=== PATIENT | female | born 1985 | race African-American/Black ===

== ENCOUNTER 2017-07-11 17:42 | Emergency (ER) | payer MEDICAID ==
[~2017-07-11] VITALS: Ht 167.6 cm; Wt 74.8 kg
[2017-07-11] MEDS ORDERED: MAGN400C PO (17:50)
[2017-07-11] MEDS ORDERED: FISH OIL PO (17:50)
[2017-07-11 18:29] LABS: CREATININE 0.8 mg/dL (0.6-1.3); POTASSIUM 4.3 mmol/L (3.5-5.1)
[2017-07-11 18:35] LABS: BILIRUBIN,TOTAL 0.2 mg/dL (0.2-1.0); TOTAL PROTEIN, SERUM 7.9 g/dL (6.4-8.2)
[2017-07-11 18:37] LABS: HEMATOCRIT 24.7 % (37-47); MEAN CORPUSCULAR HEMOGLOBIN 17.5 UUG (27.0-31.0); MEAN CORPUSCULAR HGB CONC 30 g/dL (32.0-37.0); MEAN CORPUSCULAR VOLUME 59.3 FL (81.0-99.0); PLATELET COUNT (AUTO) 405 K/UL (150-450); RED BLOOD CELL COUNT(AUTO) 4.18 MIL/UL (4.2-5.4); WHITE BLOOD COUNT (AUTO) 6.9 K/UL (4.0-11.2)
[2017-07-11 18:45] LABS: HEMOGLOBIN 7.3 G/DL (12.0-16.0)
[2017-07-11] MEDS ORDERED: IV NS 1000 ML 1,000 ML IV ONE (18:45)
[2017-07-11 19:04] LABS: EOSINOPHILS % (MANUAL) 1 % (0-8); LYMPHOCYTES % (MANUAL) 46 % (20-40); MONOCYTES % (MANUAL) 10 % (2-10); NEUTROPHILS % (MANUAL) 43 % (42-75)
[2017-07-11 21:27] VITALS: BP 126/89
--- NOTE | 2017-07-11 21:27 | NUR ---
Patient discharged to home in stable conditon. Written and verbal after care instructions given. Patient verbalizes understanding of instructions. Pt walked out of ER unassisted with belongings at side...
== END 2017-07-11 21:29 | disposition home or self-care (01) ==
LOC: ER 17:43
DX: D25.9 Leiomyoma of uterus, unspecified (principal); D64.9 Anemia, unspecified
CPT/HCPCS: 36415; 71010; 76856; 80053; 84703; 85025; 85610; 86850; 86900; 86901; 93005; 96360; 96361; 99285; A4663; J7030 ×2